=== PATIENT | female | born 1960 | race Caucasian/White ===

== ENCOUNTER 2023-09-14 10:10 | Emergency (ER) | payer MEDICARE, SELFPAY ==
[2023-09-14 10:31] VITALS: BP 127/71; PULSE 68; RESP 18; TEMP 36.8; O2SAT 94
[2023-09-14 10:33] VITALS: BP 127/71; PULSE 56; RESP 14; O2SAT 94
--- NOTE | 2023-09-14 10:34 | ED_ITS ---
HPI - Skin/Abscess/Foreign Bdy General: Chief complaint: Skin/Abscess/Foreign Body Stated complaint: insect bites, arm pain Time Seen by Provider: 09/14/23 10:24 Source: patient Mode of arrival: ambulatory Limitations: language barrier ( Patient is deaf but does really well with lipreading) History of Present Illness: Patient is a nice 63-year-old female presents to ED today with a complaint of poison lanette/poison oak to her bilateral forearms. She states she has had the rash approximately a week. She states she has been trying several anpb-yaa-dwfinla therapies but her rash does not seem to be improving. She has had similar rashes before. MD complaint: rash Onset (ago): day(s) Tetanus up to date: yes Location: [facility] Severity: moderate Quality: burning and pruritic Relieving factors: none Exacerbating factors: none Context: other (exposure to poison lanette/poison oak) Associated symptoms: Reports no associated symptoms; Deny chills, fever(s), nausea or vomiting Treatments prior to arrival: OTC topical medication and Benadryl Review of Systems Const: Denies: fever(s), chills, body aches, fatigue or malaise Card: Denies: chest pain Resp: Denies: dyspnea GI: Denies: abdominal pain, nausea, vomiting or diarrhea Musc: Denies: neck pain, back pain, extremity pain or joint pain Skin/Breast: Reports: rash (bilateral forearms), pruritus and erythema Neuro: Denies: headache(s), numbness in extremities, weakness in extremities or sensory changes Physical Exam Const: COMMON NORMALS: no acute distress, average body habitus, patient oriented x3, no limitations, healthy appearing, alert and well nourished GENERAL APPEARANCE: cooperative ORIENTATION/CONSCIOUSNESS: Yes awake, Yes oriented to person, Yes oriented to place and Yes oriented to time HENMT: COMMON NORMALS: normocephalic and atraumatic HEAD & SCALP: normal to inspection, normocephalic and atraumatic FACE & SINUS: normal facial exam Neck/C-Spine: COMMON NORMALS: no lymphadenopathy GENERAL: Yes normal visual inspection Extremity: COMMON NORMALS: full ROM, capillary refill normal and no joint enlargement GENERAL: Yes normal exam except as noted RIGHT UPPER EXTREMITY: Yes lower arm LEFT UPPER EXTREMITY: Yes lower arm OTHER: rash to bilateral forearms Neuro: COMMON NORMALS: patient oriented x3, moves all extremities, no focal motor deficits and no sensory deficits noted SENSORIUM/ORIENTATION: Yes alert, Yes oriented to person, Yes oriented to place and Yes oriented to time Skin: NARRATIVE SKIN EXAM: rash consistent with a plant dermatitis noted to bilateral forearms; few scattered places elsewhere like R ankle Course Vital Signs: Vital signs: Vital Signs Temperature 98.2 F 09/14/23 10:31 Pulse Rate 56 L 09/14/23 10:33 Respiratory Rate 14 09/14/23 10:33 Blood Pressure 127/71 09/14/23 10:33 Pulse Oximetry 94 09/14/23 10:33 Oxygen Delivery Me thod Room Air 09/14/23 10:33 MDM - Skin/Abscess/Foreign Bdy Medicial Decision Making Patient was given IM hydrocortisone here and be placed on a long 10-day steroid taper. Recommend continuing conservative/topical therapies at home. Differential Diagnosis Likely urticaria, cellulitis, eczema, insect bites and contact dermatitis Medical Records I reviewed the patient's medical records. No radiology studies performed this visit Discharge Plan Discharge Patient Disposition: Home Clinical Impression: Contact dermatitis due to plant Condition: Stable Prescriptions: New prednisone 10 mg tablet 10 mg PO DAILY 10 Days Qty: 41 0RF Rx Instructions: 6 tab on day 1-2, 5 tab on day 3-4, 4 tab on day 5-6, 3 tabs on day 7-8, 2 tab on day 9-10, 1 tab on day 11 Discharge Orders: Discharge ED (Routine); Ordered 09/14/23 Ordered By: Gina Conner Patient Instructions: Poison [place], [place], and [place] - Adult Coding Level of Care Code ED Can Intake Worker for Ashleyg Tessa
[2023-09-14] MEDS: hydrocortisone 100 mg/2 mL SDV 50 MG IM (10:47)
[2023-09-14 10:51] VITALS: BP 125/69; PULSE 54; RESP 16; TEMP 36.8; O2SAT 99
== END 2023-09-14 10:52 | disposition home or self-care (01) ==
PROVIDERS: Emergency Provider Physician Assistant
DX: L25.5 Unspecified contact dermatitis due to plants, except food (principal); H91.90 Unspecified hearing loss, unspecified ear
CPT/HCPCS: 96372; 99284; J1720

== ENCOUNTER → 2024-06-29 11:22 | Outpatient (BNVA) | payer MEDICARE, MEDICAID, SELFPAY | PROVIDERS: PCP Clinical Nurse Specialist Adult Health; Visit Provider Clinical Nurse Specialist Adult Health | DX: E55.9 Vitamin D deficiency, unspecified (principal); E53.8 Deficiency of other specified B group vitamins; E03.9 Hypothyroidism, unspecified; J30.2 Other seasonal allergic rhinitis; E78.5 Hyperlipidemia, unspecified | CPT/HCPCS: 80053; 80061; 82306; 82607; 84443; 85025 ==

== ENCOUNTER 2024-07-05 12:16 | Outpatient (CLI) | payer MEDICARE, MEDICAID, SELFPAY ==
--- NOTE | 2024-07-05 12:20 | MM_ITS ---
WS: [id number] BILATERAL SCREENING DIGITAL TOMOSYNTHESIS MAMMOGRAM WITH CAD HISTORY: Z12.39 - Encounter for other screening for malignant neop... COMPARISON: 08/08/2020, 09/16/2018 Bilateral CC and MLO views with tomosynthesis and synthetic mammography submitted. Computer aided detection analyzed. Breast composition: The breasts are heterogeneously dense, which may obscure small masses. No suspicious masses, microcalcifications or architectural distortion. Scattered asymmetries and a few benign calcifications. MM/MM scr tomosynthesis [id number] IMPRESSION: BI-RADS: 2 - Benign FOLLOW UP: 1 Year Follow-up
== END 2024-07-05 12:17 | disposition home or self-care (01) ==
LOC: MOBLMAM 12:26
PROVIDERS: PCP Clinical Nurse Specialist Adult Health; Visit Provider Clinical Nurse Specialist Adult Health
DX: Z12.31 Encounter for screening mammogram for malignant neoplasm of breast (principal); R92.333 Mammographic heterogeneous density, bilateral breasts; R92.1 Mammographic calcification found on diagnostic imaging of breast; N64.89 Other specified disorders of breast
CPT/HCPCS: 77063; 77067

== ENCOUNTER → 2024-08-05 08:32 | Outpatient (BNVA) | payer MEDICARE, MEDICAID, SELFPAY | PROVIDERS: PCP Clinical Nurse Specialist Adult Health; Visit Provider Clinical Nurse Specialist Adult Health | DX: E78.2 Mixed hyperlipidemia (principal) | CPT/HCPCS: 80061 ==

== ENCOUNTER → 2024-08-30 09:06 | Outpatient (BNVA) | payer MEDICARE, MEDICAID, SELFPAY | PROVIDERS: PCP Clinical Nurse Specialist Adult Health; Referring Provider Clinical Nurse Specialist Adult Health; Visit Provider Physician Assistant | DX: M67.441 Ganglion, right hand (principal); M18.11 Unilateral primary osteoarthritis of first carpometacarpal joint, right hand; Z46.89 Encounter for fitting and adjustment of other specified devices | CPT/HCPCS: 73130 ==

== ENCOUNTER 2024-08-30 13:52 | Outpatient (CLI) | payer MEDICARE, MEDICAID, SELFPAY | END 2024-08-30 13:53 | disposition home or self-care (01) | LOC: SPT 13:59 | PROVIDERS: PCP Clinical Nurse Specialist Adult Health; Visit Provider Physician Assistant | DX: Z46.89 Encounter for fitting and adjustment of other specified devices (principal); M18.11 Unilateral primary osteoarthritis of first carpometacarpal joint, right hand | CPT/HCPCS: L3809 ==

== ENCOUNTER 2024-09-29 13:30 | Outpatient (CLI) | payer MEDICARE, MEDICAID, SELFPAY ==
--- NOTE | 2024-09-29 14:30 | XR_ITS ---
WS: [id number] SCREENING DEXA SCAN [place] CLINICAL INFORMATION: M81.0 - Age-related osteoporosis without current patholog... FINDINGS: The L1-L4 bone mineral density measures 0.917 g/cm2. This corresponds to a T score score of -2.2 and Z score of -1.3. Left femoral neck bone mineral density measures 0.853 g/cm2. This corresponds to a T score of -1.2 and Z score of -0.5. Right femoral neck bone mineral density measures 0.811 g/cm2. This corresponds to a T score -1.6of and Z score of -0.8. Mean femoral neck bone mineral density measures 0.832 g/cm2. This corresponds to a T score of -1.4 and Z score of -0.7. XR/XR DEXA axial skeleton* [id number] IMPRESSION: Osteopenia lumbar spine. Osteopenia femoral necks. Patient's FRAX calculated 10 year probability for major osteoporotic fracture i s 11.5% and osteoporotic hip fracture is 2.1%.
== END 2024-09-29 13:31 | disposition home or self-care (01) ==
PROVIDERS: PCP Clinical Nurse Specialist Adult Health; Visit Provider Clinical Nurse Specialist Adult Health
DX: M81.0 Age-related osteoporosis without current pathological fracture (principal); M85.89 Other specified disorders of bone density and structure, multiple sites
CPT/HCPCS: 77080

== ENCOUNTER 2025-02-05 11:39 | Emergency (ER) | payer MEDICARE, MEDICAID, SELFPAY ==
[2025-02-05 11:46] VITALS: BP 153/78; PULSE 52; RESP 16; TEMP 36.9; O2SAT 97
--- OUTSIDE RECORDS SUMMARY | 2025-02-05 11:48 | XMS_ITS | Clinical Summary ---
Author Organization [facility] Balbina Pacheco Address [address] [facility] [address] [id number] Care Team Providers Care Bi Tester Name Role Phone Unavailable Primary Care Provider Unavailabl e Allergies Active Allergy Reactions Criticality Noted Date Comments Amoxicillin Hives,Itching,Rash High 10/28/2024 Amoxicillin-Pot Clavulanate Diarrhea Low 10/29/19 Sulfa (Sulfonamide Antibiotics) Diarrhea Low 03/2024 Medications levothyroxine 75 mcg tablet Take 1 Tablet by mouth daily. Active fluticasone propionate (FLONASE) 50 mcg/spray [place], Suspension nasal inhaler Administer 1 Combes in each nostril daily. Active Active Problems No known active problems Encounters Date Type Department Care Team Description 01/25/2025 External Device Data [facility] ABSTRACTION Provider, Abstract 01/24/2025 External Device Data [facility] ABSTRACTION Provider, Abstract 01/18/2025 External Device Data [facility] ABSTRACTION Provider, Abstract 01/17/2025 External Device Data [facility] ABSTRACTION Provider, Abstract 12/13/2024 External Device Data [facility] ABSTRACTION Provider, Abstract 12/06/2024 External Device Data [facility] ABSTRACTION Provider, Abstract 11/21/2024 10:00 AM CDT Office Visit [facility] [address] [place] [id number] Delia Solis CCC-A Sensorineural hearing loss, bilateral (Primary Dx); Cochlear implant in place 11/09/2024 Abstract [facility] [address] [place] [id number] Delia Solis CCC-A from Last 3 Months Social History Tobacco Use Types Packs/Day Years Used Date Smoking Tobacco: Former Cigarettes Smokeless Tobacco: Never Tobacco Cessation:Counseling Given: Yes Alcohol Use Standard Drinks/Week Comments Never 0 (1 standard drink = 0.6 oz pur e alcohol) Comments Unknown Sex and Gender Information Value Date Recorded Sex Assigned at Not on file Legal Sex Female 1:58 PM CDT Gender Identity Not on file Sexual Orientation Not on file Last Filed Vital Signs Vital Sign Reading Time Taken Comments Blood Pressure 130/65 10/28/2024 11:13 AM CDT Pulse - - Temperature - - Respiratory Rate - - Oxygen Saturation - - Inhaled Oxygen Concentration - - Weight 86.2 kg (190 lb) 10/28/2024 11:13 AM CDT Height 154.9 cm (5' 1 ) 10/28/2024 11:13 AM CDT Body Mass Index 35.9 10/28/2024 11:13 AM CDT Plan of Treatment Health Maintenance Due Date Last Done Comments Pre-Diabetes and Diabetes Screening 1960 DTAP/TDAP/TD VACCINES (1 - Tdap) 01/29/1979 PNEUMOCOCCAL VACCINE 50+ YEARS (1 of 2 - PCV) 01/29/19 79 BREAST CANCER SCREENING 2000 COLORECTAL SCREENING 01/29/2005 Colorectal Cancer Screening 01/29/2005 FIT-DNA Q 3 years 01/29/2005 FIT/FOBT Q 1 year 01/29/2005 Flex Sig/CT Colonography Q 5 years 01/29/2005 ZOSTER VACCINE (1 of 2) 01/29/2010 INFLUENZA VACCINE (#1) 2024 OSTEOPOROSIS SCREENING 01/29/2025 RSV VACCINE (60+ or ) (1 - 1-dose 75+ series) 01/29/2035 Insurance MEDICARE PART A AND B [place]ICA[place]
--- NOTE | 2025-02-05 11:49 | XRR_ITS ---
PROCEDURE INFORMATION: Exam: XR Left Wrist Exam date and time: 02/05/2025 12:03 PM Age: 65 years old Clinical indication: Pain; Wrist; Left; Additional info: Lt wrist pain/swelling post foosh TECHNIQUE: Imaging protocol: Radiologic exam of the left wrist. Views: 1 or 2 views. COMPARISON: No relevant prior studies available. FINDINGS: Bones/joints: Demineralization of the visualized bones, limiting sensitivity for nondisplaced fractures. Mild degenerative disease of the STT and 1st carpometacarpal joint. Irregularity of the ulnar styloid, from prior injury. Cortical irregularity at the dorsal aspect of the radial metaphysis suspicious for a nondisplaced fracture. Soft tissues: There is soft tissue swelling. XR/XR wrist LT w scaphoid [id number] IMPRESSION: Cortical irregularity at the dorsal aspect of the radial metaphysis suspicious for a nondisplaced fracture.
--- NOTE | 2025-02-05 11:58 | W.ED.EXTPRO ---
HPI - Extremity Problem General: Chief complaint: Extremity Injury, Upper Stated complaint: Left arm pain Time Seen by Provider: 02/05/25 11:49 History of Present Illness: 65-year-old female who presents to the emergency room after falling on an outstretched left wrist. She is complaining of left wrist pain. She denies strike her head there is no loss consciousness she denies any other injuries. She does have pain distal radius extending into the wrist. Not strike her head no loss consciousness fall was a ground-level mechanical fall. Associated symptoms: Deny chest pain, fever(s) or rash Related Data Home Medications ?Medication ?Instructions ?Recorded ?Confirmed acetaminophen 325 mg tablet 325 mg PO QID PRN 06/29/24 10/13/24 (Tylenol) sumatriptan succinate 50 mg tablet See Rx Instructions PO .COMPLEX 06/29/24 10/13/24 red yeast rice 600 mg capsule 600 mg PO DAILY 07/29/24 10/13/24 Previous Rx's ?Medication ?Instructions ?Recorded cholecalciferol (vitamin D3) 50 50 mcg PO DAILY #90 caps 06/29/24 mcg (2,000 unit) capsule fexofenadine 180 mg tablet 180 mg PO DAILY #90 tabs 06/29/24 (Allergy Relief (fexofenadine)) fluticasone propionate 50 1 spray intranasal DAILY #16 grams 06/29/24 mcg/actuation nasal spray,suspension (Allergy Relief (fluticasone)) levothyroxine 75 mcg tablet 75 mcg PO QDAY #90 tabs 06/29/24 mecobalamin (vitamin B12) 1,000 1,000 mcg PO DAILY #90 tabs 06/29/24 mcg chewable tablet calcium carbonate (Antacid 200 mg PO BID #60 tabs 09/23/24 (calcium carbonate)) diclofenac sodium 1 % topical gel 2 g topical QID #50 grams 09/23/24 (Arthritis Pain (diclofenac)) clobetasol 0.05 % topical cream 1 applic topical .QHS #15 grams 10/13/24 hydrocodone 5 mg-acetaminophen 325 1 tab PO Q6H PRN pain #7 tabs 02/05/25 mg tablet Allergies Allergy/AdvReac Type Severity Reaction Status Date / Time [id number] Reductase Allergy Intermediate muscle Verified 10/13/24 09:00 Inhibitor cramps and diarrhea amoxicillin (From Augmentin) Allergy ALGY-Rash Verified 10/13/24 09:00 clavulanic acid (From Allergy ALGY-Rash Verified 10/13/24 09:00 Augmentin) Sulfa (Sulfonamide Allergy ALGY-Rash Verified 10/13/24 09:00 Antibiotics) Review of Systems Const: Denies: fever(s) or chills Card: Denies: chest pain Resp: Denies: dyspnea GI: Denies: abdominal pain : Denies: dysuria, urinary frequency or urinary urgency Musc: Reports: joint pain; Denies: neck pain or back pain Skin/Breast: Denies: rash PFSH ED PFSH: Medical History Osteoarthritis of hands, bilateral Osteoporosis Hyperlipidemia CKD (chronic kidney disease), stage II Deaf reads lips well Vitamin D deficiency Vitamin B12 deficiency Hypothyroidism Seasonal allergies Hx of mammogram Surgical History History of cochlear implant Hx of colonoscopy polyps-2021 History of nasal surgery Hx of section Family History Mother Leukemia Other Diabetes Hyperlipidemia Social History Smoking and tobacco/nicotine status: never used tobacco/nicotine Quit status (tobacco/nicotine): has quit using Former quit date comment: many years ago Alcohol intake: never Substance/Drug Use: never Marital status: Number of children: 2 Current occupational status: retired Physical Exam Const: GENERAL APPEARANCE: cooperative ORIENTATION/CONSCIOUSNESS: Yes awake, Yes oriented to person, Yes oriented to place and Yes oriented to time HENMT: COMMON NORMALS: normocephalic, atraumatic and hearing grossly normal bilaterally HEAD & SCALP: normocephalic and atraumatic Resp: COMMON NORMALS: normal respiratory effort, No retractions, No use of accessory muscles and clear to auscultation bilaterally AUSCULTATION: clear to auscultation bilaterally Cardio: COMMON NORMALS: regular rate, regular rhythm and No murmurs present (Cardio) RATE: regular rate RHYTHM: regular rhythm Extremity: COMMON NORMALS: normal to inspection, capillary refill normal, no clubbing, cyanosis or edema, no calf tenderness and no pedal edema Neuro: SENSORIUM/ORIENTATION: Yes oriented to person, Yes oriented to place and Yes oriented to time Skin: COMMON NORMALS: no rashes or lesions noted GENERAL SKIN EXAM: no rashes or lesions noted Course Vital Signs: Vital signs: Vital Signs Temperature 98.4 F 02/05/25 11:46 Pulse Rate 52 L 02/05/25 11:46 Respiratory Rate 18 02/05/25 12:37 Blood Pressure 153/78 02/05/25 11:46 Pulse Oximetry 98 02/05/25 12:37 Oxygen Delivery Me thod Room Air 02/05/25 12:37 MDM - Extremity (Nontraumatic) Medical Decision Making X-ray shows nondisplaced distal radius fracture. Peers to be through the articulating surface. I also question a possible scaphoid fracture patient has mild discomfort at the anatomical snuffbox. The placement is splint including the thumb spica splint to protect both areas of concern refer to orthopedics elevate and ice as needed Lab Data Radiology Impressions Wrist X-Ray 02/05/25 11:49 IMPRESSION: Cortical irregularity at the dorsal aspect of the radial metaphysis suspicious for a nondisplaced fracture. All radiology interpretation(s) finalized by discharge Discharge Plan Discharge Patient Disposition: Home Clinical Impression: Fracture of scaphoid bone of left wrist, Distal radius fracture, left Condition: Stable Prescriptions: New hydrocodone-acetaminophen 5-325 mg tablet 1 tab PO Q6H PRN (Reason: pain) Qty: 7 0RF No Action clobetasol 0.05 % cream 1 applic topical .QHS Qty: 15 2RF Rx Instructions: apply to affected area nightly for 12 weeks sumatriptan succinate 50 mg tablet See Rx Instructions PO .COMPLEX Rx Instructions: take 1 tab at onset of headache; if no relief may repeat 1 tab after at least 2 hrs; max = 4 tabs/24 hr PO acetaminophen [Tylenol] 325 mg tablet 325 mg PO QID PRN fexofenadine [Allergy Relief (fexofenadine)] 180 mg tablet 180 mg PO DAILY Qty: 90 3RF fluticasone propionate [Allergy Relief (fluticasone)] 50 mcg/actuation spray,suspension 1 spray intranasal DAILY Qty: 16 6RF Rx Instructions: administer into each nostril levothyroxine 75 mcg tablet 75 mcg PO QDAY Qty: 90 3RF mecobalamin (vitamin B12) 1,000 mcg tablet,chewable 1,000 mcg PO DAILY Qty: 90 3RF cholecalciferol (vitamin D3) 50 mcg (2,000 unit) capsule 50 mcg PO DAILY Qty: 90 3RF red yeast rice 600 mg capsule 600 mg PO DAILY Rx Instructions: give with meal/snack diclofenac sodium [Arthritis Pain (diclofenac)] 1 % gel 2 g topical QID Qty: 50 0RF Rx Instructions: apply to single elbow, wrist or hand; for hand includes palm/fingers/back of hand calcium carbonate [Antacid (calcium carbonate)] 200 mg calcium (500 mg) tablet,chewable 200 mg PO BID Qty: 60 0RF Discharge Orders: Discharge ED (Routine); Ordered 02/05/25 Ordered By: Rachid Ndiaye Referrals: Madhu Meadows, SENIOR DRUPAL DEVELOPER [Primary Care Provider, Family Practice] Discharge Diet: Usual diet Discharge Activity: Limit activity as instructed Patient Instructions: Opioid Safety, Pain Management, Patient Portal & Birdie Instructions Activity Restrictions/Additional Instructions: Thank you for choosing [facility] for your healthcare needs today. It is very important that you follow up as instructed or that you return to the Emergency Department should you have concerns or if your condition changes or worsens in any way. Emergency department visits are focused on emergent conditions, in some cases you may require further evaluation on an outpatient basis. You were seen this morning with complaints of left wrist pain after a fall on x-ray there appears to be a nondisplaced distal radius fracture as well as a nondisplaced scaphoid fracture. We have placed you in a splint you should not use the left arm until you follow-up with orthopedics for repeat imaging and further guidance. Elevate and use ice as well as pain medication prescribed as needed. (Please note that included in your discharge packet is information concerning opioid safety and pain management. This information is given to all patients were discharged from the ER regardless of their discharge diagnosis or the medicines they usually take or are prescribed.) Print Language: Burmese Coding Level of Care Code ED Land Acquisition Manager for Abdoulaye Zarate
[2025-02-05 12:37] VITALS: RESP 18; O2SAT 98
[2025-02-05] MEDS: HYDROcodone-acetaminophen 5-325 mg Tablet 1 TAB PO (13:34)
--- NOTE | 2025-02-06 07:52 | DCPLANNER ---
messaged ortho for er f/u
== END 2025-02-05 13:44 | disposition home or self-care (01) ==
PROVIDERS: Emergency Provider Family Medicine; PCP Clinical Nurse Specialist Adult Health
DX: S62.002A Unspecified fracture of navicular [scaphoid] bone of left wrist, initial encounter for closed fracture (principal); S52.592A Other fractures of lower end of left radius, initial encounter for closed fracture; Z87.891 Personal history of nicotine dependence; E78.5 Hyperlipidemia, unspecified; N18.2 Chronic kidney disease, stage 2 (mild); W19.XXXA Unspecified fall, initial encounter
CPT/HCPCS: 29125; 73110; 99283; A4565; J9999

== ENCOUNTER → 2025-02-10 11:32 | Outpatient (BNVA) | payer MEDICARE, MEDICAID, SELFPAY | PROVIDERS: PCP Clinical Nurse Specialist Adult Health; Visit Provider Orthopaedic Surgery | DX: S52.502A Unspecified fracture of the lower end of left radius, initial encounter for closed fracture (principal); W01.0XXA Fall on same level from slipping, tripping and stumbling without subsequent striking against object, initial encounter; Z46.89 Encounter for fitting and adjustment of other specified devices; X58.XXXD Exposure to other specified factors, subsequent encounter | CPT/HCPCS: 73110 ==

== ENCOUNTER 2025-02-10 12:07 | Outpatient (CLI) | payer MEDICARE, MEDICAID, SELFPAY | END 2025-02-10 12:08 | disposition home or self-care (01) | LOC: SPT 12:08 | PROVIDERS: PCP Clinical Nurse Specialist Adult Health; Visit Provider Orthopaedic Surgery | DX: Z46.89 Encounter for fitting and adjustment of other specified devices (principal); S52.502D Unspecified fracture of the lower end of left radius, subsequent encounter for closed fracture with routine healing; X58.XXXD Exposure to other specified factors, subsequent encounter | CPT/HCPCS: 99204; L3982 ==

== ENCOUNTER → 2025-03-02 10:51 | Outpatient (BNVA) | payer MEDICARE, MEDICAID, SELFPAY | PROVIDERS: PCP Clinical Nurse Specialist Adult Health; Visit Provider Orthopaedic Surgery | DX: S52.532D Colles' fracture of left radius, subsequent encounter for closed fracture with routine healing (principal); X58.XXXD Exposure to other specified factors, subsequent encounter | CPT/HCPCS: 73110; 99213 ==

== ENCOUNTER → 2025-03-17 08:23 | Outpatient (BNVA) | payer MEDICARE, MEDICAID, SELFPAY | PROVIDERS: PCP Clinical Nurse Specialist Adult Health; Visit Provider Clinical Nurse Specialist Adult Health | DX: I10 Essential (primary) hypertension (principal); E03.9 Hypothyroidism, unspecified; R73.9 Hyperglycemia, unspecified; E78.2 Mixed hyperlipidemia; N18.2 Chronic kidney disease, stage 2 (mild) | CPT/HCPCS: 80053; 80061; 83036; 84443; 85025 ==